=== PATIENT | male | born 1975 | race Caucasian/White ===

== ENCOUNTER 2019-05-20 08:05 | Emergency (ER) | payer MEDICAID, OTHER ==
[~2019-05-20] VITALS: Ht 193 cm; Wt 96.6 kg
[2019-05-20] MEDS ORDERED: NEOMY/BACITRA/POLYMYXIN B OINT UD PACKET TP ONE ×2 (08:26→08:45)
[2019-05-20] MEDS ORDERED: ACETAMINOPHEN ES 500 MG TABLET ONE (08:31)
--- NOTE | 2019-05-20 08:33 | NUR ---
cleansed the right foot thoroughly with luke warm water and soap and rinsed it until clean. dressed with triple antibiotic, sterile 4x4 non-adhessive dressing per md order. sandwich provided for pt.
[2019-05-20] MEDS ORDERED: ACETAMINOPHEN ES 500 MG TABLET PO ONE (08:45)
== END 2019-05-20 08:35 | disposition home or self-care (01) ==
LOC: ER 08:05
DX: S90.822A Blister (nonthermal), left foot, initial encounter (principal); L08.9 Local infection of the skin and subcutaneous tissue, unspecified; E78.5 Hyperlipidemia, unspecified; Z91.040 Latex allergy status; X58.XXXA Exposure to other specified factors, initial encounter; Y93.89 Activity, other specified; Y92.89 Other specified places as the place of occurrence of the external cause; Y99.8 Other external cause status
CPT/HCPCS: A4663; A9150

== ENCOUNTER 2021-06-09 18:11 | Emergency (ER) | payer OTHER ==
[~2021-06-09] VITALS: Ht 185.4 cm; Wt 90.7 kg
[2021-06-09] MEDS ORDERED: LISI40TA13 PO (18:40)
[2021-06-09] MEDS ORDERED: METF-440 PO (18:40)
--- NOTE | 2021-06-09 19:01 | NUR ---
Dr Boykin at the bedside for MSE.
--- NOTE | 2021-06-09 19:13 | NUR ---
pt a/o, pt has a food tray. He does not c/o any pain.
[2021-06-09] MEDS ORDERED: IBUPROFEN 600 MG TABLET PO ONE (19:15)
[2021-06-09 19:24] LABS: HEMATOCRIT 37.9 % (36.7-47.1); MEAN CORPUSCULAR HEMOGLOBIN 26.9 uug (23.8-33.4); MEAN CORPUSCULAR VOLUME 80.2 fL (73.0-96.2); PLATELET COUNT (AUTO) 316 K/uL (152-348)
[2021-06-09] MEDS ORDERED: IBUPROFEN 600 MG TABLET ONE (20:14)
--- NOTE | 2021-06-09 22:18 | NUR ---
pt taken to cat scan.
--- NOTE | 2021-06-09 22:32 | NUR ---
pt returned from cat scan.
[2021-06-09] MEDS ORDERED: SULF1TAB48 PO (23:28)
[2021-06-09] MEDS ORDERED: IBUP-1955 PO (23:28)
--- NOTE | 2021-06-09 23:38 | NUR ---
Patient discharged to home in stable condition. Written and verbal after care instructions given. Patient verbalizes understanding of instructions. Stressed follow up or return to ER for worsening s/s. pt ambulatory with steady gait, denies pain.
[2021-06-09 23:39] VITALS: BP 147/82
== END 2021-06-09 23:39 | disposition home or self-care (01) ==
LOC: ER 18:14
DX: E11.621 Type 2 diabetes mellitus with foot ulcer (principal); L97.428 Non-pressure chronic ulcer of left heel and midfoot with other specified severity; R94.8 Abnormal results of function studies of other organs and systems; E87.1 Hypo-osmolality and hyponatremia; Z79.84 Long term (current) use of oral hypoglycemic drugs; Z59.00 Homelessness unspecified; Z91.040 Latex allergy status; R03.0 Elevated blood-pressure reading, without diagnosis of hypertension
CPT/HCPCS: 36415; 73630; 73700; 85025; 85651; A4663